=== PATIENT | male | born 1995 | race Caucasian/White ===

== ENCOUNTER 2020-01-08 17:33 | Emergency (ER) | payer SELFPAY ==
[2020-01-08 17:29] VITALS: BP 113/45; PULSE 79; RESP 18; O2SAT 97
[2020-01-08 17:35] VITALS: PULSE 73
--- NOTE | 2020-01-08 17:48 | ECG_ITS ---
Measurements Intervals [place] Rate: 61 P: 12 MO: 159 QRS: 85 QRSD: 93 T: 60 QT: 393 QTc: 398 Interpretive Statements SINUS RHYTHM RSR' IN V1 OR V2, CONSIDER RIGHT VENTRICULAR HYPERTROPHY OR RIGHT VCD BASELINE WANDER- II, III BORDERLINE ECG Electronically Signed On 01-08-2020 18:30:04 CDT by Billy De Guzman D.O.
--- NOTE | 2020-01-08 17:57 | PC.NURSE ---
Pt. stated they would like to leave before being seen. EDP aware and is ok with Pt. leaving but stated Pt. cannot drive due to seizure like activity. Pt. is currently AOx4 and state he feels better. senior talent acquisition specialist aware as well.
[2020-01-08 18:00] VITALS: O2SAT 99
== END 2020-01-08 18:19 | disposition left against medical advice (07) ==
PROVIDERS: Emergency Provider Emergency Medicine
DX: R51 Headache (principal)
CPT/HCPCS: 93005; 99199